=== PATIENT | female | born 1950 | race Caucasian/White ===

== ENCOUNTER 2019-06-02 02:23 | Emergency (ER) | payer OTHER ==
[~2019-06-02] VITALS: Ht 162.6 cm; Wt 92.1 kg
[2019-06-02 02:28] VITALS: Ht 162.6 cm; Wt 92.1 kg
[2019-06-02 04:17] VITALS: BP 154/60
== END 2019-06-02 04:17 | disposition home or self-care (01) ==
LOC: ED 02:23
DX: J45.901 Unspecified asthma with (acute) exacerbation (principal)
CPT/HCPCS: J7512; J7613; J7644

== ENCOUNTER 2019-09-13 06:32 | Emergency (ER) | payer OTHER ==
[~2019-09-13] VITALS: Ht 162.6 cm; Wt 91.4 kg
[2019-09-13 06:38] VITALS: Ht 162.6 cm; Wt 91.4 kg
[2019-09-13 08:22] VITALS: BP 153/47
== END 2019-09-13 08:22 | disposition home or self-care (01) ==
LOC: ED 06:32
DX: J45.909 Unspecified asthma, uncomplicated (principal)
CPT/HCPCS: J7512